=== PATIENT | female | born 1955 | race African-American/Black ===

== ENCOUNTER 2020-04-02 12:25 | Inpatient (IN) ==
[2020-04-02 14:02] LABS: Basophils % 0.2 % (0.0-0.8); Eosinophils # 0.1 10*3/uL (0.0-0.87); Hematocrit 44.8 VOL% (35.7-47.0); Hemoglobin 14.2 GM/DL (12.0-16.0); Immature Granulocytes % 0.5 %; Immature Granulocytes Absolute 0.06 #; Lymphocytes # 1.1 10*3/uL (1.4-4.0); Lymphocytes % 9.1 % (21.3-54.2); Mean Corpuscular HGB Conc 31.7 GM/DL (32-36); Mean Corpuscular Volume 93.3 FL (87-102); Mean Platelet Volume 10.4 FL (9.6-12.0); Monocytes % 7.2 % (1.7-12.7); Platelet Count 310 T/CUMM (130-400); Red Cell Distribution Width 15.9 % (9.3-17.3); White Blood Count 11.5 T/CUMM (4-12)
[2020-04-02 14:14] LABS: Calcium 9.7 MG/DL (8.5-10.1); Osmolality,Calculated 281.5 MOS/KG (273-304)
[2020-04-02] MEDS ORDERED: DEXAMETHASONE 4 MG/1 ML VIAL IM STA (14:47)
[2020-04-02] MEDS ORDERED: methylPREDNISolone ACETATE 40 MG/1 ML VIAL IM STA (14:47)
[2020-04-02 16:02] LABS: Apearance,Urine CLEAR (Clear); Bilirubin,Urine Negative (Negative); Blood, Urine Negative (Negative); Glucose,Urine (UA) Negative (Negative); Ketones,Urine Negative (Negative); Mucus,Urine Occasional /LPF (Occasional); Nitrite,Urine Negative (Negative); Protein,Urine Negative; RBC,Urine 3 /HPF (0-4); Squamous Epithelial Cell,Urine Occasional /HPF (0-10); Urine Color Yellow (Yellow); Urine Specific Gravity 1.013 (1.001-1.035); Urine Urobilinogen < 2.0 EU/DL (0.2-1.0); WBC,Urine 1 /HPF (0-6)
[2020-04-02] MEDS ORDERED: tiZANidine 4 MG TABLET PO PRN (16:56)
[2020-04-02] MEDS: ACETAMINOPHEN 325 MG TABLET PO PRN (17:00)
[2020-04-02] MEDS: SODIUM CHLORIDE 0.9% 1,000 ML IV SCH (17:01)
[2020-04-02] MEDS: INSULIN ASPART PROTAMINE/ASPART 70/30 100 UNIT/ML SUBCUT SCH (17:16)
[2020-04-02] MEDS: rOPINIRole 1 MG TABLET PO SCH (20:43)
[2020-04-02] MEDS: ENOXAPARIN 40 MG/0.4 ML SYRINGE SUBCUT SCH (20:43)
[2020-04-02] MEDS: PREGABALIN 50 MG CAPSULE PO SCH (20:43)
[2020-04-02] MEDS: DOCUSATE SODIUM 100 MG CAPSULE PO SCH (20:44)
[2020-04-03] MEDS: SODIUM CHLORIDE 0.9% 1,000 ML IV SCH ×4 (00:05→16:12)
[2020-04-03] MEDS: ACETAMINOPHEN 325 MG TABLET PO PRN (06:12)
[2020-04-03] MEDS: PREGABALIN 50 MG CAPSULE PO SCH ×2 (08:31→21:55)
[2020-04-03] MEDS: INSULIN ASPART PROTAMINE/ASPART 70/30 100 UNIT/ML SUBCUT SCH ×2 (08:31→16:24)
[2020-04-03] MEDS: metOLazone 2.5 MG TABLET PO SCH (08:32)
[2020-04-03] MEDS: ASPIRIN EC 81 MG TABLET PO SCH (08:32)
[2020-04-03] MEDS: FUROSEMIDE 80 MG TABLET PO SCH (08:32)
[2020-04-03] MEDS: DOCUSATE SODIUM 100 MG CAPSULE PO SCH ×2 (08:32→21:55)
[2020-04-03] MEDS ORDERED: PANTOPRAZOLE 40 MG TABLET PO SCH (09:00)
[2020-04-03] MEDS: DICLOFENAC 1% GEL 100 GM TUBE TOP SCH ×4 (09:52→21:56)
[2020-04-03] MEDS ORDERED: MAGNESIUM SULF RIDER 2 GM in PREMIX 1 EACH IV ONE (15:04)
[2020-04-03] MEDS: ONDANSETRON 4 MG/2 ML VIAL IV PRN (15:22)
[2020-04-03] MEDS: PROMETHAZINE 25 MG/1 ML VIAL IM PRN (18:24)
[2020-04-03] MEDS ORDERED: hydrOXYzine HCL 25 MG/1 ML VIAL IM ONE (21:00)
[2020-04-03] MEDS: PANTOPRAZOLE 40 MG VIAL IV SCH (21:55)
[2020-04-03] MEDS: ENOXAPARIN 40 MG/0.4 ML SYRINGE SUBCUT SCH (21:55)
[2020-04-03] MEDS: rOPINIRole 1 MG TABLET PO SCH (21:55)
[2020-04-04] MEDS: PANTOPRAZOLE 40 MG VIAL IV SCH ×2 (08:57→22:00)
[2020-04-04] MEDS: PREGABALIN 50 MG CAPSULE PO SCH ×2 (08:58→22:01)
[2020-04-04] MEDS: DOCUSATE SODIUM 100 MG CAPSULE PO SCH ×2 (08:58→22:00)
[2020-04-04] MEDS: FUROSEMIDE 80 MG TABLET PO SCH (08:58)
[2020-04-04] MEDS: metOLazone 2.5 MG TABLET PO SCH (08:58)
[2020-04-04] MEDS: ASPIRIN EC 81 MG TABLET PO SCH (08:58)
[2020-04-04] MEDS: DICLOFENAC 1% GEL 100 GM TUBE TOP SCH ×4 (08:58→22:02)
[2020-04-04] MEDS: INSULIN ASPART PROTAMINE/ASPART 70/30 100 UNIT/ML SUBCUT SCH ×2 (09:20→17:20)
[2020-04-04] MEDS: SODIUM CHLORIDE 0.9% 1,000 ML IV SCH ×2 (12:14→12:15)
[2020-04-04] MEDS: ONDANSETRON 4 MG/2 ML VIAL IV PRN (14:49)
[2020-04-04] MEDS: PROMETHAZINE 25 MG/1 ML VIAL IM PRN (16:17)
[2020-04-04] MEDS: ENOXAPARIN 40 MG/0.4 ML SYRINGE SUBCUT SCH (22:00)
[2020-04-04] MEDS: rOPINIRole 1 MG TABLET PO SCH (22:02)
[2020-04-05 05:17] LABS: Basophils % 0.1 % (0.0-0.8); Eosinophils # 0.2 10*3/uL (0.0-0.87); Eosinophils % 1.6 % (0.00-10.9); Hematocrit 42.9 VOL% (35.7-47.0); Hemoglobin 13.8 GM/DL (12.0-16.0); Immature Granulocytes % 0.4 %; Immature Granulocytes Absolute 0.04 #; Lymphocytes # 1.1 10*3/uL (1.4-4.0); Lymphocytes % 10.6 % (21.3-54.2); Mean Corpuscular HGB Conc 32.2 GM/DL (32-36); Mean Corpuscular Volume 92.9 FL (87-102); Mean Platelet Volume 11.1 FL (9.6-12.0); Monocytes % 9.1 % (1.7-12.7); Neutrophils % 78.2 % (38.7-73.9); Platelet Count 277 T/CUMM (130-400); Red Blood Count 4.62 MC/CUMM (3.8-5.5); Red Cell Distribution Width 15.8 % (9.3-17.3); White Blood Count 10.5 T/CUMM (4-12)
[2020-04-05 05:31] LABS: Osmolality,Calculated 271.1 MOS/KG (273-304)
[2020-04-05] MEDS: INSULIN ASPART PROTAMINE/ASPART 70/30 100 UNIT/ML SUBCUT SCH ×2 (09:04→17:10)
[2020-04-05] MEDS: DOCUSATE SODIUM 100 MG CAPSULE PO SCH ×2 (09:05→21:55)
[2020-04-05] MEDS: metOLazone 2.5 MG TABLET PO SCH (09:05)
[2020-04-05] MEDS: PANTOPRAZOLE 40 MG VIAL IV SCH ×2 (09:05→21:55)
[2020-04-05] MEDS: FUROSEMIDE 80 MG TABLET PO SCH (09:05)
[2020-04-05] MEDS: ASPIRIN EC 81 MG TABLET PO SCH (09:05)
[2020-04-05] MEDS: PREGABALIN 50 MG CAPSULE PO SCH ×2 (09:05→21:55)
[2020-04-05] MEDS: SODIUM CHLORIDE 0.9% 1,000 ML IV SCH (09:06)
[2020-04-05] MEDS: DICLOFENAC 1% GEL 100 GM TUBE TOP SCH ×3 (09:06→17:11)
[2020-04-05] MEDS ORDERED: MAGNESIUM SULF RIDER 2 GM in PREMIX 1 EACH IV ONE (09:11)
[2020-04-05] MEDS: ENOXAPARIN 40 MG/0.4 ML SYRINGE SUBCUT SCH (21:55)
[2020-04-05] MEDS: rOPINIRole 1 MG TABLET PO SCH (21:55)
[2020-04-06] MEDS: DICLOFENAC 1% GEL 100 GM TUBE TOP SCH ×5 (00:16→20:22)
[2020-04-06] MEDS: metOLazone 2.5 MG TABLET PO SCH (09:49)
[2020-04-06] MEDS: ASPIRIN EC 81 MG TABLET PO SCH (09:49)
[2020-04-06] MEDS: DOCUSATE SODIUM 100 MG CAPSULE PO SCH ×2 (09:49→20:16)
[2020-04-06] MEDS: INSULIN ASPART PROTAMINE/ASPART 70/30 100 UNIT/ML SUBCUT SCH ×2 (09:49→16:40)
[2020-04-06] MEDS: PREGABALIN 50 MG CAPSULE PO SCH ×2 (09:49→20:16)
[2020-04-06] MEDS: FUROSEMIDE 80 MG TABLET PO SCH (09:49)
[2020-04-06] MEDS: PANTOPRAZOLE 40 MG VIAL IV SCH ×2 (09:50→20:15)
[2020-04-06] MEDS: SODIUM CHLORIDE 0.9% 1,000 ML IV SCH (16:00)
[2020-04-06] MEDS: rOPINIRole 1 MG TABLET PO SCH (20:16)
[2020-04-06] MEDS: APIXABAN 5 MG TABLET PO SCH (20:16)
[2020-04-07] MEDS: metOLazone 2.5 MG TABLET PO SCH (08:29)
[2020-04-07] MEDS: DOCUSATE SODIUM 100 MG CAPSULE PO SCH (08:29)
[2020-04-07] MEDS: APIXABAN 5 MG TABLET PO SCH (08:29)
[2020-04-07] MEDS: ASPIRIN EC 81 MG TABLET PO SCH (08:29)
[2020-04-07] MEDS: PANTOPRAZOLE 40 MG VIAL IV SCH (08:29)
[2020-04-07] MEDS: PREGABALIN 50 MG CAPSULE PO SCH (08:29)
[2020-04-07] MEDS: FUROSEMIDE 80 MG TABLET PO SCH (08:29)
[2020-04-07] MEDS: INSULIN ASPART PROTAMINE/ASPART 70/30 100 UNIT/ML SUBCUT SCH ×2 (08:30→17:53)
[2020-04-07] MEDS: DICLOFENAC 1% GEL 100 GM TUBE TOP SCH ×3 (10:42→17:54)
[2020-04-07] MEDS: SODIUM CHLORIDE 0.9% 1,000 ML IV SCH (13:28)
[2020-04-07 16:46] VITALS: BP 125/64
== END 2020-04-07 19:13 | DRG 125 ==
LOC: EDBD → EDUNIT# → N.ED 12:25 → N.EDINP 15:18 → N.TELEN 16:40
PROVIDERS: ADMIT Family Medicine; ATTEND Family Medicine

== ENCOUNTER 2020-05-26 15:25 | Inpatient (IN) ==
[2020-05-26] MEDS ORDERED: GLUCAGON 1 MG VIAL IM PRN (15:29)
[2020-05-26] MEDS ORDERED: ONDANSETRON 4 MG/2 ML VIAL IV PRN (15:29)
[2020-05-26] MEDS ORDERED: DEXTROSE 50% 25 GM/50 ML VIAL IV PRN (15:29)
[2020-05-26] MEDS ORDERED: ACETAMINOPHEN 325 MG TABLET PO PRN (15:29)
[2020-05-26 17:04] LABS: Basophils % 0.3 % (0.0-0.8); Eosinophils # 0.2 10*3/uL (0.0-0.87); Eosinophils % 1.6 % (0.00-10.9); Hematocrit 44.9 VOL% (35.7-47.0); Hemoglobin 13.8 GM/DL (12.0-16.0); Immature Granulocytes % 1.1 %; Immature Granulocytes Absolute 0.13 #; Lymphocytes # 1.3 10*3/uL (1.4-4.0); Lymphocytes % 10.7 % (21.3-54.2); Mean Corpuscular HGB Conc 30.7 GM/DL (32-36); Mean Corpuscular Volume 92.6 FL (87-102); Mean Platelet Volume 10.4 FL (9.6-12.0); Monocytes % 7.2 % (1.7-12.7); Neutrophils % 79.1 % (38.7-73.9); Platelet Count 329 T/CUMM (130-400); Red Blood Count 4.85 MC/CUMM (3.8-5.5); Red Cell Distribution Width 18.2 % (9.3-17.3)
[2020-05-26] MEDS: INSULIN LISPRO 100 UNIT/ML SUBCUT SCH ×2 (17:19→21:52)
[2020-05-26 17:32] LABS: Albumin 3.8 G/DL (3.4-5.0); Bilirubin,Total 0.4 MG/DL (0.2-1.0); Calcium 10.2 MG/DL (8.5-10.1); Osmolality,Calculated 275.1 MOS/KG (273-304); Total Protein 9.5 G/DL (6.4-8.3)
[2020-05-26] MEDS: SODIUM CHLORIDE 0.45% 1,000 ML IV SCH (18:04)
[2020-05-26 18:14] LABS: Bacteria,Urine Many /HPF (Few); Bilirubin,Urine Negative (Negative); Blood, Urine Negative (Negative); Glucose,Urine (UA) Negative (Negative); Hyaline Casts,Urine 7 /LPF (0-3); Ketones,Urine Negative (Negative); Nitrite,Urine Negative (Negative); Protein,Urine 30 MG/DL; RBC,Urine 4 /HPF (0-4); Squamous Epithelial Cell,Urine Occasional /HPF (0-10); Urine Appearance CLEAR (Clear); Urine Color Yellow (Yellow); Urine Specific Gravity 1.013 (1.001-1.035); Urine Urobilinogen < 2.0 EU/DL (0.2-1.0); WBC,Urine 1 /HPF (0-6)
[2020-05-26] MEDS: LEVOFLOXACIN INJ 500 MG in PREMIX 1 EACH IV SCH (18:18)
[2020-05-26] MEDS ORDERED: VANCOMYCIN INJ 2,500 MG in SODIUM CHLORIDE 0.9% 500 ML IV ONE (20:00)
[2020-05-26] MEDS: DOCUSATE SODIUM 100 MG CAPSULE PO SCH (21:52)
[2020-05-26] MEDS: DABIGATRAN 75 MG CAPSULE PO SCH (21:52)
[2020-05-27] MEDS: DOCUSATE SODIUM 100 MG CAPSULE PO SCH ×2 (09:07→20:37)
[2020-05-27] MEDS: DABIGATRAN 75 MG CAPSULE PO SCH ×2 (09:07→20:37)
[2020-05-27] MEDS: PANTOPRAZOLE 40 MG TABLET PO SCH (09:07)
[2020-05-27] MEDS: INSULIN LISPRO 100 UNIT/ML SUBCUT SCH ×4 (09:08→20:37)
[2020-05-27] MEDS: SODIUM CHLORIDE 0.45% 1,000 ML IV SCH ×2 (10:16→23:40)
[2020-05-27] MEDS: LEVOFLOXACIN INJ 500 MG in PREMIX 1 EACH IV SCH (17:48)
[2020-05-27] MEDS: VANCOMYCIN INJ 2,000 MG in SODIUM CHLORIDE 0.9% 500 ML IV SCH (18:11)
[2020-05-27] MEDS: MENTHOL/ZINC OXIDE OINT 71 GM JAR TOP SCH (20:44)
[2020-05-28] MEDS: INSULIN LISPRO 100 UNIT/ML SUBCUT SCH ×4 (08:27→21:16)
[2020-05-28] MEDS: DABIGATRAN 75 MG CAPSULE PO SCH ×2 (08:30→21:15)
[2020-05-28] MEDS: MENTHOL/ZINC OXIDE OINT 71 GM JAR TOP SCH (08:30)
[2020-05-28] MEDS: PANTOPRAZOLE 40 MG TABLET PO SCH (08:30)
[2020-05-28] MEDS: LEVOFLOXACIN INJ 500 MG in PREMIX 1 EACH IV SCH (08:30)
[2020-05-28] MEDS: DOCUSATE SODIUM 100 MG CAPSULE PO SCH ×2 (08:30→21:16)
[2020-05-28] MEDS: SODIUM CHLORIDE 0.45% 1,000 ML IV SCH (14:40)
[2020-05-28] MEDS: VANCOMYCIN INJ 2,000 MG in SODIUM CHLORIDE 0.9% 500 ML IV SCH (17:26)
[2020-05-29] MEDS: SODIUM CHLORIDE 0.45% 1,000 ML IV SCH (04:55)
[2020-05-29] MEDS: LEVOFLOXACIN INJ 500 MG in PREMIX 1 EACH IV SCH (08:30)
[2020-05-29] MEDS: DABIGATRAN 75 MG CAPSULE PO SCH (08:31)
[2020-05-29] MEDS: MENTHOL/ZINC OXIDE OINT 71 GM JAR TOP SCH (08:31)
[2020-05-29] MEDS: DOCUSATE SODIUM 100 MG CAPSULE PO SCH (08:31)
[2020-05-29] MEDS: PANTOPRAZOLE 40 MG TABLET PO SCH (08:31)
[2020-05-29] MEDS: INSULIN LISPRO 100 UNIT/ML SUBCUT SCH ×2 (09:15→11:15)
[2020-05-29 15:45] VITALS: BP 115/64
== END 2020-05-29 16:01 | disposition home health service (06) | DRG 689 ==
LOC: N.5E → OBSVTOIN 15:47
PROVIDERS: ADMIT Family Medicine; ATTEND Family Medicine

== ENCOUNTER 2020-06-04 19:51 | Inpatient (IN) ==
[2020-06-04 20:46] LABS: Basophils % 0.1 % (0.0-0.8); Hematocrit 42.3 VOL% (35.7-47.0); Immature Granulocytes % 0.6 %; Immature Granulocytes Absolute 0.09 #; Lymphocytes # 0.6 10*3/uL (1.4-4.0); Mean Corpuscular HGB Conc 30.7 GM/DL (32-36); Mean Platelet Volume 10.7 FL (9.6-12.0); Monocytes % 7.6 % (1.7-12.7); Neutrophils % 87.7 % (38.7-73.9); Platelet Count 265 T/CUMM (130-400); White Blood Count 14.1 T/CUMM (4-12)
[2020-06-04 21:02] LABS: ABG Base Excess 13.1 MMOL/L (-2.5-2.5); ABG HCO3 36.7 MMOL/L (20-26); ABG Oxygen Saturation 89.3 % (95-100); ABG PO2 60.7 MM HG (80-95); ABG TCO2 39.7 MMOL/L (23-27); Allen Test Positive
[2020-06-04 21:07] LABS: INR 1.2; PT Patient Result 12.5 SECS (9.8-11.9)
[2020-06-04 21:07] LABS: ABG PCO2 90.4 MM HG (35-48)
[2020-06-04 21:34] LABS: Lymphocytes 4 % (20-55); Platelet Estimate Normal; Segmented Neutrophils 89 % (50-85); Total Cells Counted 100
[2020-06-04 21:40] LABS: Anisocytosis 1+; Hypochromasia Slight; Microcytosis Slight; Polychromasia Few
[2020-06-04 21:55] LABS: Alanine Aminotransferase 14 U/L (13-56); Albumin 3.3 G/DL (3.4-5.0); Alkaline Phosphatase 55 U/L (45-117); Aspartate Amino Transferase 21 U/L (0-37); Bilirubin,Total < 0.39 MG/DL (0.2-1.0); Blood Urea Nitrogen 35 MG/DL (7-18); Calcium 9.4 MG/DL (8.5-10.1); Estimated Glom Filtration Rate 53 ML/MIN; Glucose 71 MG/DL (74-106); Osmolality,Calculated 278.8 MOS/KG (273-304); Total Protein 8.3 G/DL (6.4-8.3)
[2020-06-04] MEDS ORDERED: FUROSEMIDE 40 MG/4 ML VIAL IV STA (21:57)
[2020-06-04 22:08] LABS: Bilirubin,Urine Negative (Negative); Blood, Urine Small mg/dL (Negative); Glucose,Urine (UA) Negative (Negative); Hyaline Casts,Urine 37 /LPF (0-3); Ketones,Urine Negative (Negative); Mucus,Urine Occasional /LPF (Occasional); Nitrite,Urine Negative (Negative); Protein,Urine 30 MG/DL; RBC,Urine 3 /HPF (0-4); Squamous Epithelial Cell,Urine Occasional /HPF (0-10); Urine Appearance CLEAR (Clear); Urine Color Yellow (Yellow); Urine Specific Gravity 1.012 (1.001-1.035); Urine Urobilinogen < 2.0 EU/DL (0.2-1.0)
[2020-06-04] MEDS ORDERED: GLUCAGON 1 MG VIAL IM PRN (23:28)
[2020-06-04] MEDS ORDERED: ACETAMINOPHEN 325 MG TABLET PO PRN (23:28)
[2020-06-04] MEDS ORDERED: ONDANSETRON 4 MG/2 ML VIAL IV PRN (23:28)
[2020-06-04] MEDS ORDERED: DEXTROSE 50% 25 GM/50 ML VIAL IV PRN (23:28)
[2020-06-04] MEDS ORDERED: ALBUTEROL 2.5 MG/3 ML NEB RESP TX PRN (23:28)
[2020-06-04] MEDS ORDERED: DOCUSATE SODIUM 100 MG CAPSULE PO PRN (23:28)
[2020-06-05] MEDS ORDERED: LEVOFLOXACIN INJ 500 MG in PREMIX 1 EACH IV STA (00:30)
[2020-06-05] MEDS ORDERED: tiZANidine 4 MG TABLET PO PRN (02:20)
[2020-06-05] MEDS ORDERED: ALBUTEROL/IPRATROPIUM 3 ML NEB RESP TX PRN (02:23)
[2020-06-05] MEDS ORDERED: ACETYLCYSTEINE 600 MG CAPSULE PO STA (02:26)
[2020-06-05] MEDS ORDERED: LACTATED RINGERS 1,000 ML IV SCH (02:30)
[2020-06-05] MEDS ORDERED: oxyCODONE/ACETAMINOPHEN 5-325 MG TABLET PO PRN (02:48)
[2020-06-05] MEDS ORDERED: METOPROLOL TARTRATE 5 MG/5 ML VIAL IV STA (02:52)
[2020-06-05] MEDS ORDERED: VANCOMYCIN 1,000 MG VIAL ONE ×2 (03:13→03:14)
[2020-06-05] MEDS ORDERED: VANCOMYCIN INJ 3,000 MG in SODIUM CHLORIDE 0.9% 500 ML IV ONE (04:00)
[2020-06-05] MEDS ORDERED: DEXTROSE 50% 25 GM/50 ML SYRINGE IV PRN (04:52)
[2020-06-05 05:04] LABS: Bilirubin,Total 0.5 MG/DL (0.2-1.0); Calcium 9.4 MG/DL (8.5-10.1); Total Protein 7.6 G/DL (6.4-8.3)
[2020-06-05 05:25] LABS: ABG Base Excess 12.2 MMOL/L (-2.5-2.5); ABG PO2 147.2 MM HG (80-95); ABG TCO2 44.4 MMOL/L (23-27)
[2020-06-05 05:26] LABS: ABG Oxygen Saturation 98.7 % (95-100)
[2020-06-05 05:29] LABS: ABG PCO2 79.6 MM HG (35-48)
[2020-06-05 06:09] LABS: Basophils % 0.1 % (0.0-0.8); Eosinophils % 0.1 % (0.00-10.9); Hematocrit 40.4 VOL% (35.7-47.0); Hemoglobin 12.2 GM/DL (12.0-16.0); Immature Granulocytes % 0.3 %; Immature Granulocytes Absolute 0.04 #; Lymphocytes # 0.7 10*3/uL (1.4-4.0); Mean Corpuscular HGB Conc 30.2 GM/DL (32-36); Mean Corpuscular Volume 94.4 FL (87-102); Mean Platelet Volume 10.5 FL (9.6-12.0); Monocytes % 8.6 % (1.7-12.7); Neutrophils % 84.9 % (38.7-73.9); Platelet Count 234 T/CUMM (130-400); Red Blood Count 4.28 MC/CUMM (3.8-5.5); Red Cell Distribution Width 18.2 % (9.3-17.3); White Blood Count 11.7 T/CUMM (4-12)
[2020-06-05] MEDS ORDERED: FUROSEMIDE 40 MG/4 ML VIAL IV SCH (08:00)
[2020-06-05] MEDS: INSULIN LISPRO 100 UNIT/ML SUBCUT SCH ×4 (08:10→20:37)
[2020-06-05] MEDS ORDERED: DIGOXIN 0.5 MG/2 ML AMP IV STA (08:48)
[2020-06-05] MEDS ORDERED: MEGESTROL 40 MG TABLET PO SCH (09:00)
[2020-06-05] MEDS ORDERED: PREGABALIN 50 MG CAPSULE PO SCH (09:00)
[2020-06-05] MEDS ORDERED: metOLazone 2.5 MG TABLET PO SCH (09:00)
[2020-06-05] MEDS ORDERED: INSULIN ASPART PROTAMINE/ASPART 70/30 100 UNIT/ML SUBCUT SCH (09:00)
[2020-06-05] MEDS: AZTREONAM 2,000 MG in SODIUM CHLORIDE 0.9% 100 ML IV SCH ×3 (10:08→20:36)
[2020-06-05] MEDS: ASPIRIN EC 81 MG TABLET PO SCH (10:28)
[2020-06-05] MEDS: ACETYLCYSTEINE 600 MG CAPSULE PO SCH ×2 (10:29→20:40)
[2020-06-05] MEDS: PANTOPRAZOLE 40 MG TABLET PO SCH (10:29)
[2020-06-05] MEDS: DOCUSATE SODIUM 100 MG CAPSULE PO SCH ×2 (10:29→20:19)
[2020-06-05] MEDS: DABIGATRAN 75 MG CAPSULE PO SCH ×2 (10:29→20:22)
[2020-06-05] MEDS: guaiFENesin/DM ER 600-30 MG TABLET PO SCH ×2 (10:29→20:40)
[2020-06-05] MEDS: CHOLECALCIFEROL 1,000 UNIT TABLET PO SCH (10:29)
[2020-06-05] MEDS: METOPROLOL TARTRATE 25 MG TABLET PO SCH ×2 (15:40→20:19)
[2020-06-05] MEDS ORDERED: SODIUM CHLORIDE 0.9% 500 ML IV ONE (16:01)
[2020-06-05 16:21] LABS: ABG Base Excess 19.1 MMOL/L (-2.5-2.5); ABG HCO3 43.3 MMOL/L (20-26); ABG Oxygen Saturation 91.7 % (95-100); ABG PH 7.401 (7.35-7.45); ABG PO2 64.1 MM HG (80-95); ABG TCO2 43.3 MMOL/L (23-27)
[2020-06-05 16:27] LABS: ABG PCO2 78.5 MM HG (35-48)
[2020-06-05] MEDS: SODIUM CHLORIDE 0.9% 1,000 ML IV SCH (17:25)
[2020-06-05] MEDS: MENTHOL/ZINC OXIDE OINT 71 GM JAR TOP SCH (20:19)
[2020-06-05] MEDS ORDERED: VANCOMYCIN INJ 1,500 MG in SODIUM CHLORIDE 0.9% 500 ML IV ONE (22:00)
[2020-06-05] MEDS ORDERED: VANCOMYCIN INJ 2,500 MG in SODIUM CHLORIDE 0.9% 500 ML IV ONE (22:00)
[2020-06-06] MEDS: SODIUM CHLORIDE 0.9% 1,000 ML IV SCH ×4 (01:16→15:40)
[2020-06-06] MEDS: LEVOFLOXACIN INJ 750 MG in PREMIX 1 EACH IV SCH (01:50)
[2020-06-06] MEDS: AZTREONAM 2,000 MG in SODIUM CHLORIDE 0.9% 100 ML IV SCH ×4 (03:54→21:02)
[2020-06-06 05:00] LABS: Basophils % 0.1 % (0.0-0.8); Eosinophils # 0.1 10*3/uL (0.0-0.87); Eosinophils % 0.6 % (0.00-10.9); Hematocrit 37.6 VOL% (35.7-47.0); Hemoglobin 11.6 GM/DL (12.0-16.0); Immature Granulocytes % 0.5 %; Immature Granulocytes Absolute 0.04 #; Lymphocytes # 0.6 10*3/uL (1.4-4.0); Lymphocytes % 7.1 % (21.3-54.2); Mean Corpuscular HGB Conc 30.9 GM/DL (32-36); Mean Corpuscular Volume 91.7 FL (87-102); Mean Platelet Volume 11.3 FL (9.6-12.0); Monocytes % 9.4 % (1.7-12.7); Neutrophils % 82.3 % (38.7-73.9); Platelet Count 267 T/CUMM (130-400); Red Cell Distribution Width 18.5 % (9.3-17.3); White Blood Count 8.4 T/CUMM (4-12)
[2020-06-06] MEDS: VANCOMYCIN INJ 2,500 MG in SODIUM CHLORIDE 0.9% 500 ML IV SCH ×2 (05:03→22:53)
[2020-06-06 05:10] LABS: Albumin 2.5 G/DL (3.4-5.0); Bilirubin,Total 0.6 MG/DL (0.2-1.0); Osmolality,Calculated 281.8 MOS/KG (273-304)
[2020-06-06] MEDS: METOPROLOL TARTRATE 25 MG TABLET PO SCH ×2 (10:42→21:04)
[2020-06-06] MEDS: guaiFENesin/DM ER 600-30 MG TABLET PO SCH ×2 (10:42→21:04)
[2020-06-06] MEDS: ASPIRIN EC 81 MG TABLET PO SCH (10:42)
[2020-06-06] MEDS: DOCUSATE SODIUM 100 MG CAPSULE PO SCH ×2 (10:43→21:04)
[2020-06-06] MEDS: DABIGATRAN 75 MG CAPSULE PO SCH ×2 (10:43→21:03)
[2020-06-06] MEDS: PANTOPRAZOLE 40 MG TABLET PO SCH (10:43)
[2020-06-06] MEDS: CHOLECALCIFEROL 1,000 UNIT TABLET PO SCH (10:43)
[2020-06-06] MEDS: DIGOXIN 0.25 MG TABLET PO SCH (10:43)
[2020-06-06] MEDS: ACETYLCYSTEINE 600 MG CAPSULE PO SCH ×2 (10:43→21:28)
[2020-06-06] MEDS: INSULIN LISPRO 100 UNIT/ML SUBCUT SCH ×4 (10:59→21:28)
[2020-06-06] MEDS: MENTHOL/ZINC OXIDE OINT 71 GM JAR TOP SCH (11:00)
[2020-06-06 11:15] LABS: ABG Base Excess 17.3 MMOL/L (-2.5-2.5); ABG HCO3 41.4 MMOL/L (20-26); ABG Oxygen Saturation 93.4 % (95-100); ABG PCO2 67.7 MM HG (35-48); ABG PH 7.435 (7.35-7.45); ABG PO2 67.2 MM HG (80-95); ABG TCO2 40.5 MMOL/L (23-27); Allen Test Positive
[2020-06-06] MEDS: PREGABALIN 50 MG CAPSULE PO SCH ×2 (16:15→21:03)
[2020-06-06] MEDS ORDERED: POLYETHYLENE GLYCOL POWDER 255 GM BOTTLE PO ONE (21:00)
[2020-06-07] MEDS: LEVOFLOXACIN INJ 750 MG in PREMIX 1 EACH IV SCH (00:50)
[2020-06-07] MEDS: AZTREONAM 2,000 MG in SODIUM CHLORIDE 0.9% 100 ML IV SCH ×4 (03:09→20:57)
[2020-06-07 05:06] LABS: Basophils % 0.2 % (0.0-0.8); Eosinophils # 0.1 10*3/uL (0.0-0.87); Eosinophils % 1.1 % (0.00-10.9); Hematocrit 39.9 VOL% (35.7-47.0); Hemoglobin 12.2 GM/DL (12.0-16.0); Immature Granulocytes % 0.6 %; Immature Granulocytes Absolute 0.05 #; Lymphocytes # 0.8 10*3/uL (1.4-4.0); Mean Corpuscular HGB Conc 30.6 GM/DL (32-36); Mean Corpuscular Volume 91.9 FL (87-102); Mean Platelet Volume 10.9 FL (9.6-12.0); Monocytes % 10.9 % (1.7-12.7); Neutrophils % 77.2 % (38.7-73.9); Platelet Count 237 T/CUMM (130-400); Red Blood Count 4.34 MC/CUMM (3.8-5.5); Red Cell Distribution Width 18.4 % (9.3-17.3); White Blood Count 8.3 T/CUMM (4-12)
[2020-06-07 05:37] LABS: Calcium 8.8 MG/DL (8.5-10.1); Osmolality,Calculated 276.1 MOS/KG (273-304)
[2020-06-07] MEDS: SODIUM CHLORIDE 0.9% 1,000 ML IV SCH ×3 (06:17→18:27)
[2020-06-07] MEDS: INSULIN LISPRO 100 UNIT/ML SUBCUT SCH ×4 (07:55→21:33)
[2020-06-07] MEDS: DABIGATRAN 75 MG CAPSULE PO SCH ×2 (08:55→20:57)
[2020-06-07] MEDS: guaiFENesin/DM ER 600-30 MG TABLET PO SCH ×2 (08:55→20:57)
[2020-06-07] MEDS: ACETYLCYSTEINE 600 MG CAPSULE PO SCH ×2 (08:55→20:58)
[2020-06-07] MEDS: DIGOXIN 0.25 MG TABLET PO SCH (08:55)
[2020-06-07] MEDS: CHOLECALCIFEROL 1,000 UNIT TABLET PO SCH (08:56)
[2020-06-07] MEDS: PREGABALIN 50 MG CAPSULE PO SCH ×2 (08:56→20:57)
[2020-06-07] MEDS: METOPROLOL TARTRATE 25 MG TABLET PO SCH ×2 (09:05→20:58)
[2020-06-07] MEDS: PANTOPRAZOLE 40 MG TABLET PO SCH (09:05)
[2020-06-07] MEDS: MENTHOL/ZINC OXIDE OINT 71 GM JAR TOP SCH (09:06)
[2020-06-07] MEDS: ASPIRIN EC 81 MG TABLET PO SCH (09:06)
[2020-06-07] MEDS: DOCUSATE SODIUM 100 MG CAPSULE PO SCH ×2 (09:07→20:58)
[2020-06-07] MEDS: VANCOMYCIN INJ 2,500 MG in SODIUM CHLORIDE 0.9% 500 ML IV SCH (16:27)
[2020-06-07] MEDS: CALCIUM CARBONATE CHEW 500 MG TABLET PO PRN (22:38)
[2020-06-08] MEDS: SODIUM CHLORIDE 0.9% 1,000 ML IV SCH ×4 (00:56→21:31)
[2020-06-08] MEDS: LEVOFLOXACIN INJ 750 MG in PREMIX 1 EACH IV SCH (00:56)
[2020-06-08] MEDS: AZTREONAM 2,000 MG in SODIUM CHLORIDE 0.9% 100 ML IV SCH ×4 (02:48→21:28)
[2020-06-08 05:53] LABS: Basophils % 0.1 % (0.0-0.8); Eosinophils # 0.2 10*3/uL (0.0-0.87); Eosinophils % 2.1 % (0.00-10.9); Hematocrit 36.6 VOL% (35.7-47.0); Hemoglobin 11.3 GM/DL (12.0-16.0); Immature Granulocytes % 0.5 %; Immature Granulocytes Absolute 0.04 #; Lymphocytes # 0.9 10*3/uL (1.4-4.0); Lymphocytes % 10.3 % (21.3-54.2); Mean Corpuscular HGB Conc 30.9 GM/DL (32-36); Mean Corpuscular Volume 92.9 FL (87-102); Mean Platelet Volume 11.2 FL (9.6-12.0); Monocytes % 10.3 % (1.7-12.7); Neutrophils % 76.7 % (38.7-73.9); Platelet Count 248 T/CUMM (130-400); Red Blood Count 3.94 MC/CUMM (3.8-5.5); Red Cell Distribution Width 18.3 % (9.3-17.3); White Blood Count 8.5 T/CUMM (4-12)
[2020-06-08 06:25] LABS: Calcium 8.7 MG/DL (8.5-10.1)
[2020-06-08] MEDS: CHOLECALCIFEROL 1,000 UNIT TABLET PO SCH (08:42)
[2020-06-08] MEDS: ASPIRIN EC 81 MG TABLET PO SCH (08:42)
[2020-06-08] MEDS: DIGOXIN 0.25 MG TABLET PO SCH (08:42)
[2020-06-08] MEDS: METOPROLOL TARTRATE 25 MG TABLET PO SCH ×2 (08:43→21:29)
[2020-06-08] MEDS: INSULIN LISPRO 100 UNIT/ML SUBCUT SCH ×4 (08:43→21:30)
[2020-06-08] MEDS: PREGABALIN 50 MG CAPSULE PO SCH ×2 (08:43→21:29)
[2020-06-08] MEDS: PANTOPRAZOLE 40 MG TABLET PO SCH (08:43)
[2020-06-08] MEDS: DABIGATRAN 75 MG CAPSULE PO SCH ×2 (08:43→21:29)
[2020-06-08] MEDS: DOCUSATE SODIUM 100 MG CAPSULE PO SCH ×2 (08:43→21:29)
[2020-06-08] MEDS: guaiFENesin/DM ER 600-30 MG TABLET PO SCH ×2 (09:53→21:29)
[2020-06-08] MEDS: MENTHOL/ZINC OXIDE OINT 71 GM JAR TOP SCH (09:53)
[2020-06-08] MEDS: NYSTATIN POWDER 15 GM BOTTLE TOP SCH (21:32)
[2020-06-09] MEDS: LEVOFLOXACIN INJ 750 MG in PREMIX 1 EACH IV SCH (01:29)
[2020-06-09] MEDS: AZTREONAM 2,000 MG in SODIUM CHLORIDE 0.9% 100 ML IV SCH ×4 (03:24→20:44)
[2020-06-09 08:31] LABS: Uric Acid 8.4 MG/DL (2.6-6.0)
[2020-06-09] MEDS: INSULIN LISPRO 100 UNIT/ML SUBCUT SCH ×4 (09:29→20:56)
[2020-06-09] MEDS: METOPROLOL TARTRATE 25 MG TABLET PO SCH ×2 (09:42→20:47)
[2020-06-09] MEDS: guaiFENesin/DM ER 600-30 MG TABLET PO SCH ×2 (09:42→20:47)
[2020-06-09] MEDS: DIGOXIN 0.25 MG TABLET PO SCH (09:42)
[2020-06-09] MEDS: PREGABALIN 75 MG CAPSULE PO SCH ×3 (09:42→20:47)
[2020-06-09] MEDS: ASPIRIN EC 81 MG TABLET PO SCH (09:42)
[2020-06-09] MEDS: CHOLECALCIFEROL 1,000 UNIT TABLET PO SCH (09:42)
[2020-06-09] MEDS: DABIGATRAN 75 MG CAPSULE PO SCH ×2 (09:42→20:47)
[2020-06-09] MEDS: DOCUSATE SODIUM 100 MG CAPSULE PO SCH ×2 (09:42→20:47)
[2020-06-09] MEDS: PANTOPRAZOLE 40 MG TABLET PO SCH (09:43)
[2020-06-09] MEDS: NYSTATIN POWDER 15 GM BOTTLE TOP SCH ×2 (09:45→20:52)
[2020-06-09] MEDS: MENTHOL/ZINC OXIDE OINT 71 GM JAR TOP SCH (09:50)
[2020-06-09] MEDS: SODIUM CHLORIDE 0.9% 1,000 ML IV SCH ×3 (11:18→20:44)
[2020-06-10] MEDS: LEVOFLOXACIN INJ 750 MG in PREMIX 1 EACH IV SCH (01:18)
[2020-06-10] MEDS: AZTREONAM 2,000 MG in SODIUM CHLORIDE 0.9% 100 ML IV SCH ×4 (02:58→21:04)
[2020-06-10] MEDS ORDERED: CHOLECALCIFEROL PO SCH (09:00)
[2020-06-10] MEDS: INSULIN LISPRO 100 UNIT/ML SUBCUT SCH ×4 (09:15→21:05)
[2020-06-10] MEDS: SODIUM CHLORIDE 0.9% 1,000 ML IV SCH ×4 (09:18→19:29)
[2020-06-10] MEDS: DIGOXIN 0.25 MG TABLET PO SCH (09:20)
[2020-06-10] MEDS: DILTIAZEM CD 180 MG CAPSULE PO SCH (09:20)
[2020-06-10] MEDS: guaiFENesin/DM ER 600-30 MG TABLET PO SCH ×2 (09:20→21:06)
[2020-06-10] MEDS: DOCUSATE SODIUM 100 MG CAPSULE PO SCH ×2 (09:20→21:06)
[2020-06-10] MEDS: METOPROLOL TARTRATE 25 MG TABLET PO SCH ×2 (09:21→21:06)
[2020-06-10] MEDS: PANTOPRAZOLE 40 MG TABLET PO SCH (09:21)
[2020-06-10] MEDS: PREGABALIN 75 MG CAPSULE PO SCH ×3 (09:21→21:05)
[2020-06-10] MEDS: ASPIRIN EC 81 MG TABLET PO SCH (09:21)
[2020-06-10] MEDS: CHOLECALCIFEROL 1,000 UNIT TABLET PO SCH (09:21)
[2020-06-10] MEDS: DABIGATRAN 150 MG CAPSULE PO SCH ×2 (09:27→21:04)
[2020-06-10] MEDS: MENTHOL/ZINC OXIDE OINT 71 GM JAR TOP SCH (09:34)
[2020-06-10] MEDS: NYSTATIN POWDER 15 GM BOTTLE TOP SCH ×2 (09:34→21:06)
[2020-06-11] MEDS: LEVOFLOXACIN INJ 750 MG in PREMIX 1 EACH IV SCH (00:30)
[2020-06-11] MEDS: SODIUM CHLORIDE 0.9% 1,000 ML IV SCH ×2 (01:47→07:10)
[2020-06-11] MEDS: AZTREONAM 2,000 MG in SODIUM CHLORIDE 0.9% 100 ML IV SCH (03:42)
[2020-06-11] MEDS: INSULIN LISPRO 100 UNIT/ML SUBCUT SCH ×4 (07:52→20:43)
[2020-06-11] MEDS: PREGABALIN 75 MG CAPSULE PO SCH ×3 (08:42→20:41)
[2020-06-11] MEDS: guaiFENesin/DM ER 600-30 MG TABLET PO SCH ×2 (08:42→20:41)
[2020-06-11] MEDS: DILTIAZEM CD 180 MG CAPSULE PO SCH (08:42)
[2020-06-11] MEDS: CHOLECALCIFEROL 1,000 UNIT TABLET PO SCH (08:42)
[2020-06-11] MEDS: ASPIRIN EC 81 MG TABLET PO SCH (08:42)
[2020-06-11] MEDS: DABIGATRAN 150 MG CAPSULE PO SCH ×2 (08:42→20:44)
[2020-06-11] MEDS: DIGOXIN 0.25 MG TABLET PO SCH (08:42)
[2020-06-11] MEDS: DOCUSATE SODIUM 100 MG CAPSULE PO SCH ×2 (08:42→20:41)
[2020-06-11] MEDS: METOPROLOL TARTRATE 25 MG TABLET PO SCH ×2 (08:42→20:41)
[2020-06-11] MEDS: PANTOPRAZOLE 40 MG TABLET PO SCH (08:42)
[2020-06-11] MEDS: NYSTATIN POWDER 15 GM BOTTLE TOP SCH ×2 (08:43→20:44)
[2020-06-11] MEDS: MENTHOL/ZINC OXIDE OINT 71 GM JAR TOP SCH (08:43)
[2020-06-11] MEDS: CALCIUM CARBONATE CHEW 500 MG TABLET PO PRN (09:34)
[2020-06-12] MEDS: LEVOFLOXACIN INJ 750 MG in PREMIX 1 EACH IV SCH (00:37)
[2020-06-12] MEDS: DOCUSATE SODIUM 100 MG CAPSULE PO SCH (09:29)
[2020-06-12] MEDS: INSULIN LISPRO 100 UNIT/ML SUBCUT SCH ×3 (09:29→16:47)
[2020-06-12] MEDS: guaiFENesin/DM ER 600-30 MG TABLET PO SCH (09:30)
[2020-06-12] MEDS: DILTIAZEM CD 180 MG CAPSULE PO SCH (09:30)
[2020-06-12] MEDS: PREGABALIN 75 MG CAPSULE PO SCH ×2 (09:30→15:35)
[2020-06-12] MEDS: METOPROLOL TARTRATE 25 MG TABLET PO SCH (09:30)
[2020-06-12] MEDS: DIGOXIN 0.25 MG TABLET PO SCH (09:30)
[2020-06-12] MEDS: CHOLECALCIFEROL 1,000 UNIT TABLET PO SCH (09:30)
[2020-06-12] MEDS: ASPIRIN EC 81 MG TABLET PO SCH (09:30)
[2020-06-12] MEDS: PANTOPRAZOLE 40 MG TABLET PO SCH (09:31)
[2020-06-12] MEDS: DABIGATRAN 150 MG CAPSULE PO SCH (09:31)
[2020-06-12 12:15] VITALS: BP 124/69
[2020-06-12] MEDS: NYSTATIN POWDER 15 GM BOTTLE TOP SCH (12:46)
[2020-06-12] MEDS: MENTHOL/ZINC OXIDE OINT 71 GM JAR TOP SCH (12:46)
== END 2020-06-12 16:51 | DRG 189 ==
LOC: EDBD → EDUNIT# → N.ED 19:51 → SUATTDRO 23:18 → N.EDINP 23:18 → N.CC 06-05 19:45 → N.5E 06-06 14:16
PROVIDERS: ADMIT Internal Medicine; ATTEND Family Medicine

== ENCOUNTER 2020-08-12 13:32 | Inpatient (IN) ==
[2020-08-12 14:11] LABS: Basophils % 0.2 % (0.0-0.8); Eosinophils # 2.5 10*3/uL (0.0-0.87); Eosinophils % 19.3 % (0.00-10.9); Hematocrit 41.2 VOL% (35.7-47.0); Hemoglobin 12.1 GM/DL (12.0-16.0); Immature Granulocytes % 0.5 %; Immature Granulocytes Absolute 0.07 #; Lymphocytes # 1.2 10*3/uL (1.4-4.0); Lymphocytes % 9.7 % (21.3-54.2); Mean Corpuscular HGB Conc 29.4 GM/DL (32-36); Mean Corpuscular Volume 94.7 FL (87-102); Mean Platelet Volume 10.4 FL (9.6-12.0); Monocytes % 6.2 % (1.7-12.7); Neutrophils % 64.1 % (38.7-73.9); Platelet Count 355 T/CUMM (130-400); Red Blood Count 4.35 MC/CUMM (3.8-5.5); White Blood Count 12.7 T/CUMM (4-12)
[2020-08-12] MEDS ORDERED: FUROSEMIDE 100 MG/10 ML VIAL IV STA (14:17)
[2020-08-12 14:28] LABS: Albumin 2.9 G/DL (3.4-5.0); Bilirubin,Total 0.4 MG/DL (0.2-1.0); Calcium 9.2 MG/DL (8.5-10.1); Osmolality,Calculated 281.2 MOS/KG (273-304); Potassium 5.4 MMOL/L (3.5-5.1); Total Protein 7.8 G/DL (6.4-8.3)
[2020-08-12 14:30] LABS: Eosinophils 19 % (0-10); Lymphocytes 10 % (20-55); Segmented Neutrophils 62 % (50-85); Total Cells Counted 100
[2020-08-12 14:31] LABS: Anisocytosis 1+; Elliptocytes Few; Hypochromasia 1+; Platelet Estimate Adequate; Polychromasia 1+
[2020-08-12 15:05] LABS: Bacteria,Urine Occasional /HPF (Few); Bilirubin,Urine Negative (Negative); Blood, Urine Negative (Negative); Glucose,Urine (UA) Negative (Negative); Hyaline Casts,Urine 31 /LPF (0-3); Ketones,Urine Negative (Negative); Mucus,Urine Occasional /LPF (Occasional); Nitrite,Urine Negative (Negative); Protein,Urine 30 MG/DL; RBC,Urine 2 /HPF (0-4); Squamous Epithelial Cell,Urine Occasional /HPF (0-10); Urine Appearance Slightly Hazy (Clear); Urine Color Yellow (Yellow); Urine Specific Gravity 1.014 (1.001-1.035); Urine Urobilinogen < 2.0 EU/DL (0.2-1.0); WBC,Urine <1 /HPF (0-6)
[2020-08-12] MEDS ORDERED: DEXTROSE 50% 25 GM/50 ML VIAL IV PRN (15:30)
[2020-08-12] MEDS ORDERED: GLUCAGON 1 MG VIAL IM PRN (15:30)
[2020-08-12] MEDS ORDERED: CALCIUM CARBONATE CHEW 500 MG TABLET PO PRN (16:54)
[2020-08-12] MEDS: methylPREDNISolone SOD SUC 40 MG/1 ML VIAL IV SCH (18:00)
[2020-08-12] MEDS: cefTRIAXone 1,000 MG in SYRINGE 1 EACH IV SCH (18:00)
[2020-08-12] MEDS: ALBUTEROL/IPRATROPIUM 3 ML NEB RESP TX SCH ×2 (20:17→23:30)
[2020-08-12] MEDS: APIXABAN 5 MG TABLET PO SCH (21:42)
[2020-08-12] MEDS: DOCUSATE SODIUM 100 MG CAPSULE PO SCH (21:42)
[2020-08-12] MEDS: METOPROLOL TARTRATE 25 MG TABLET PO SCH (21:42)
[2020-08-12] MEDS: FUROSEMIDE 40 MG/4 ML VIAL IV SCH (21:47)
[2020-08-12] MEDS: ACETAMINOPHEN 325 MG TABLET PO PRN (21:58)
[2020-08-12] MEDS: INSULIN REGULAR 100 UNIT/ML SUBCUT SCH (21:58)
[2020-08-13] MEDS: DOCUSATE SODIUM 100 MG CAPSULE PO SCH ×5 (00:17→21:43)
[2020-08-13] MEDS: ALBUTEROL/IPRATROPIUM 3 ML NEB RESP TX SCH ×5 (02:01→19:09)
[2020-08-13 06:02] LABS: Calcium 9.5 MG/DL (8.5-10.1); Osmolality,Calculated 277.5 MOS/KG (273-304); Potassium 5.5 MMOL/L (3.5-5.1)
[2020-08-13] MEDS: methylPREDNISolone SOD SUC 40 MG/1 ML VIAL IV SCH ×2 (06:16→17:59)
[2020-08-13 06:24] LABS: Basophils % 0.1 % (0.0-0.8); Eosinophils # 0.1 10*3/uL (0.0-0.87); Eosinophils % 0.5 % (0.00-10.9); Hematocrit 44.2 VOL% (35.7-47.0); Immature Granulocytes % 1.1 %; Lymphocytes # 0.8 10*3/uL (1.4-4.0); Lymphocytes % 8.9 % (21.3-54.2); Mean Corpuscular HGB Conc 29.4 GM/DL (32-36); Mean Corpuscular Volume 95.5 FL (87-102); Mean Platelet Volume 10.8 FL (9.6-12.0); Monocytes % 4.9 % (1.7-12.7); Neutrophils % 84.5 % (38.7-73.9); Platelet Count 299 T/CUMM (130-400); Red Blood Count 4.63 MC/CUMM (3.8-5.5); Red Cell Distribution Width 16.8 % (9.3-17.3); White Blood Count 9.3 T/CUMM (4-12)
[2020-08-13 08:39] LABS: ABG Base Excess 11.1 MMOL/L (-2.5-2.5); ABG HCO3 34.8 MMOL/L (20-26); ABG Oxygen Saturation 94.4 % (95-100); ABG PH 7.288 (7.35-7.45); ABG PO2 78.6 MM HG (80-95); ABG TCO2 37.8 MMOL/L (23-27)
[2020-08-13 08:54] LABS: ABG PCO2 88.4 MM HG (35-48)
[2020-08-13] MEDS ORDERED: PANTOPRAZOLE 40 MG TABLET PO SCH (09:00)
[2020-08-13] MEDS: INSULIN REGULAR 100 UNIT/ML SUBCUT SCH ×4 (10:21→21:43)
[2020-08-13] MEDS: METOPROLOL TARTRATE 25 MG TABLET PO SCH ×2 (10:21→21:43)
[2020-08-13] MEDS: DILTIAZEM CD 180 MG CAPSULE PO SCH (10:21)
[2020-08-13] MEDS: PANTOPRAZOLE 40 MG TABLET PO SCH (10:21)
[2020-08-13] MEDS: THEOPHYLLINE ER (24 HR) 200 MG CAPSULE PO SCH (10:22)
[2020-08-13] MEDS: ASPIRIN EC 81 MG TABLET PO SCH (10:22)
[2020-08-13] MEDS: APIXABAN 5 MG TABLET PO SCH ×2 (10:22→21:43)
[2020-08-13] MEDS: FUROSEMIDE 40 MG/4 ML VIAL IV SCH ×2 (10:22→21:44)
[2020-08-13] MEDS: ACETAMINOPHEN 325 MG TABLET PO PRN (14:55)
[2020-08-13] MEDS: cefTRIAXone 1,000 MG in SYRINGE 1 EACH IV SCH (17:56)
[2020-08-14] MEDS: ALBUTEROL/IPRATROPIUM 3 ML NEB RESP TX SCH ×7 (00:03→23:23)
[2020-08-14] MEDS ORDERED: methylPREDNISolone SOD SUC 40 MG/1 ML VIAL ONE (07:27)
[2020-08-14] MEDS: methylPREDNISolone SOD SUC 40 MG/1 ML VIAL IV SCH ×2 (07:31→17:17)
[2020-08-14] MEDS: ASPIRIN EC 81 MG TABLET PO SCH (08:43)
[2020-08-14] MEDS: PANTOPRAZOLE 40 MG TABLET PO SCH (08:43)
[2020-08-14] MEDS: THEOPHYLLINE ER (24 HR) 200 MG CAPSULE PO SCH (08:43)
[2020-08-14] MEDS: FUROSEMIDE 40 MG/4 ML VIAL IV SCH ×2 (08:43→21:20)
[2020-08-14] MEDS: traMADol 50 MG TABLET PO PRN ×3 (08:44→21:28)
[2020-08-14] MEDS: DOCUSATE SODIUM 100 MG CAPSULE PO SCH ×4 (08:44→21:36)
[2020-08-14] MEDS: APIXABAN 5 MG TABLET PO SCH ×2 (08:45→21:20)
[2020-08-14] MEDS: DILTIAZEM CD 180 MG CAPSULE PO SCH (08:45)
[2020-08-14] MEDS: METOPROLOL TARTRATE 25 MG TABLET PO SCH ×2 (08:45→21:20)
[2020-08-14] MEDS: INSULIN REGULAR 100 UNIT/ML SUBCUT SCH ×4 (13:39→21:21)
[2020-08-14] MEDS ORDERED: SKIN HEALING OINT (AQUAPHOR) 50 GM TUBE TOP PRN (14:42)
[2020-08-14] MEDS: cefTRIAXone 1,000 MG in SYRINGE 1 EACH IV SCH (17:17)
[2020-08-15] MEDS: ALBUTEROL/IPRATROPIUM 3 ML NEB RESP TX SCH ×5 (03:48→20:04)
[2020-08-15] MEDS: methylPREDNISolone SOD SUC 40 MG/1 ML VIAL IV SCH ×2 (06:20→17:29)
[2020-08-15 07:17] LABS: Eosinophils % 0.2 % (0.00-10.9); Hematocrit 41.2 VOL% (35.7-47.0); Hemoglobin 12.5 GM/DL (12.0-16.0); Immature Granulocytes Absolute 0.06 #; Lymphocytes # 0.6 10*3/uL (1.4-4.0); Lymphocytes % 9.2 % (21.3-54.2); Mean Corpuscular HGB Conc 30.3 GM/DL (32-36); Mean Corpuscular Volume 91.2 FL (87-102); Mean Platelet Volume 10.8 FL (9.6-12.0); Monocytes % 8.1 % (1.7-12.7); Neutrophils % 81.5 % (38.7-73.9); Platelet Count 327 T/CUMM (130-400); Red Blood Count 4.52 MC/CUMM (3.8-5.5); Red Cell Distribution Width 16.9 % (9.3-17.3); White Blood Count 6.2 T/CUMM (4-12)
[2020-08-15 07:39] LABS: Alanine Aminotransferase 11 U/L (13-56); Albumin 2.8 G/DL (3.4-5.0); Alkaline Phosphatase 62 U/L (45-117); Aspartate Amino Transferase 3 U/L (0-37); Bilirubin,Total < 0.39 MG/DL (0.2-1.0); Blood Urea Nitrogen 46 MG/DL (7-18); Calcium 9.3 MG/DL (8.5-10.1); Carbon Dioxide 39 MMOL/L (21-32); Estimated Glom Filtration Rate 98 ML/MIN; Glucose 279 MG/DL (74-106); Osmolality,Calculated 283.7 MOS/KG (273-304); Potassium 5.1 MMOL/L (3.5-5.1); Sodium 131 MMOL/L (136-145)
[2020-08-15] MEDS: INSULIN REGULAR 100 UNIT/ML SUBCUT SCH ×4 (09:20→21:34)
[2020-08-15] MEDS: DILTIAZEM CD 180 MG CAPSULE PO SCH (09:25)
[2020-08-15] MEDS: traMADol 50 MG TABLET PO PRN ×2 (09:25→21:38)
[2020-08-15] MEDS: THEOPHYLLINE ER (24 HR) 200 MG CAPSULE PO SCH (09:25)
[2020-08-15] MEDS: ASPIRIN EC 81 MG TABLET PO SCH (09:25)
[2020-08-15] MEDS: APIXABAN 5 MG TABLET PO SCH ×2 (09:26→21:35)
[2020-08-15] MEDS: DOCUSATE SODIUM 100 MG CAPSULE PO SCH ×4 (09:27→21:49)
[2020-08-15] MEDS: PANTOPRAZOLE 40 MG TABLET PO SCH (09:27)
[2020-08-15] MEDS: FUROSEMIDE 40 MG/4 ML VIAL IV SCH ×2 (09:27→21:35)
[2020-08-15] MEDS: METOPROLOL TARTRATE 25 MG TABLET PO SCH ×2 (09:27→21:35)
[2020-08-15] MEDS: cefTRIAXone 1,000 MG in SYRINGE 1 EACH IV SCH (17:29)
[2020-08-15] MEDS: VANCOMYCIN INJ 2,000 MG in SODIUM CHLORIDE 0.9% 500 ML IV SCH (17:56)
[2020-08-15] MEDS: SODIUM CHLORIDE 0.9% 1,000 ML IV SCH (23:00)
[2020-08-16] MEDS: BUDESONIDE 0.25 MG/2 ML NEB RESP TX SCH ×3 (00:54→19:48)
[2020-08-16] MEDS: ALBUTEROL/IPRATROPIUM 3 ML NEB RESP TX SCH ×7 (00:54→23:48)
[2020-08-16] MEDS: VANCOMYCIN INJ 2,000 MG in SODIUM CHLORIDE 0.9% 500 ML IV SCH ×2 (05:20→17:49)
[2020-08-16] MEDS: traMADol 50 MG TABLET PO PRN ×3 (05:27→21:06)
[2020-08-16] MEDS: methylPREDNISolone SOD SUC 40 MG/1 ML VIAL IV SCH ×2 (06:19→18:22)
[2020-08-16 06:56] LABS: Alanine Aminotransferase 13 U/L (13-56); Albumin 2.9 G/DL (3.4-5.0); Alkaline Phosphatase 62 U/L (45-117); Aspartate Amino Transferase < 3 U/L (0-37); Blood Urea Nitrogen 49 MG/DL (7-18); Calcium 9.1 MG/DL (8.5-10.1); Carbon Dioxide 37 MMOL/L (21-32); Estimated Glom Filtration Rate 94 ML/MIN; Glucose 277 MG/DL (74-106); Osmolality,Calculated 282.8 MOS/KG (273-304); Potassium 4.8 MMOL/L (3.5-5.1); Sodium 130 MMOL/L (136-145); Total Protein 7.8 G/DL (6.4-8.3)
[2020-08-16 07:04] LABS: Eosinophils % 0.2 % (0.00-10.9); Hematocrit 41.2 VOL% (35.7-47.0); Hemoglobin 12.1 GM/DL (12.0-16.0); Immature Granulocytes % 0.7 %; Immature Granulocytes Absolute 0.04 #; Lymphocytes # 0.4 10*3/uL (1.4-4.0); Lymphocytes % 7.5 % (21.3-54.2); Mean Corpuscular HGB Conc 29.4 GM/DL (32-36); Mean Corpuscular Volume 94.3 FL (87-102); Mean Platelet Volume 11.1 FL (9.6-12.0); Monocytes % 9.8 % (1.7-12.7); Neutrophils % 81.8 % (38.7-73.9); Platelet Count 317 T/CUMM (130-400); Red Blood Count 4.37 MC/CUMM (3.8-5.5); Red Cell Distribution Width 16.4 % (9.3-17.3); White Blood Count 5.5 T/CUMM (4-12)
[2020-08-16] MEDS: ASPIRIN EC 81 MG TABLET PO SCH (10:20)
[2020-08-16] MEDS: INSULIN REGULAR 100 UNIT/ML SUBCUT SCH ×4 (10:20→21:07)
[2020-08-16] MEDS: DOCUSATE SODIUM 100 MG CAPSULE PO SCH ×4 (10:20→21:14)
[2020-08-16] MEDS: THEOPHYLLINE ER (24 HR) 200 MG CAPSULE PO SCH (10:21)
[2020-08-16] MEDS: DILTIAZEM CD 180 MG CAPSULE PO SCH (10:21)
[2020-08-16] MEDS: PANTOPRAZOLE 40 MG TABLET PO SCH (10:21)
[2020-08-16] MEDS: METOPROLOL TARTRATE 25 MG TABLET PO SCH ×2 (10:21→21:06)
[2020-08-16] MEDS: APIXABAN 5 MG TABLET PO SCH ×2 (10:21→21:06)
[2020-08-16] MEDS: FUROSEMIDE 40 MG/4 ML VIAL IV SCH ×2 (12:05→16:45)
[2020-08-16] MEDS: SODIUM CHLORIDE 0.9% 1,000 ML IV SCH (12:45)
[2020-08-16] MEDS: GABAPENTIN 300 MG CAPSULE PO SCH ×2 (15:01→21:06)
[2020-08-16] MEDS: BISACODYL 5 MG TABLET PO SCH ×2 (15:01→21:07)
[2020-08-16] MEDS: cefTRIAXone 1,000 MG in SYRINGE 1 EACH IV SCH (17:48)
[2020-08-16] MEDS: MAGNESIUM CITRATE 300 ML BOTTLE PO PRN (21:06)
[2020-08-16] MEDS: INSULIN GLARGINE 100 UNIT/ML SUBCUT SCH (21:08)
[2020-08-17] MEDS: SODIUM CHLORIDE 0.9% 1,000 ML IV SCH ×2 (02:14→22:11)
[2020-08-17] MEDS: ALBUTEROL/IPRATROPIUM 3 ML NEB RESP TX SCH ×6 (03:07→23:07)
[2020-08-17] MEDS: methylPREDNISolone SOD SUC 40 MG/1 ML VIAL IV SCH ×2 (06:27→17:40)
[2020-08-17] MEDS: VANCOMYCIN INJ 2,000 MG in SODIUM CHLORIDE 0.9% 500 ML IV SCH (06:32)
[2020-08-17] MEDS: BUDESONIDE 0.25 MG/2 ML NEB RESP TX SCH ×2 (07:06→19:21)
[2020-08-17] MEDS: INSULIN REGULAR 100 UNIT/ML SUBCUT SCH ×4 (08:32→22:11)
[2020-08-17] MEDS: FUROSEMIDE 40 MG/4 ML VIAL IV SCH ×2 (09:22→17:37)
[2020-08-17] MEDS ORDERED: GLUCAGON 1 MG VIAL IM PRN (12:18)
[2020-08-17] MEDS ORDERED: DEXTROSE 50% 25 GM/50 ML VIAL IV PRN (12:18)
[2020-08-17] MEDS: ASPIRIN EC 81 MG TABLET PO SCH (13:50)
[2020-08-17] MEDS: DILTIAZEM CD 180 MG CAPSULE PO SCH (13:50)
[2020-08-17] MEDS: APIXABAN 5 MG TABLET PO SCH (13:51)
[2020-08-17] MEDS: DOCUSATE SODIUM 100 MG CAPSULE PO SCH ×2 (13:51)
[2020-08-17] MEDS: BISACODYL 5 MG TABLET PO SCH (13:51)
[2020-08-17] MEDS: GABAPENTIN 300 MG CAPSULE PO SCH (13:52)
[2020-08-17] MEDS: PANTOPRAZOLE 40 MG TABLET PO SCH (13:52)
[2020-08-17] MEDS: METOPROLOL TARTRATE 25 MG TABLET PO SCH (13:52)
[2020-08-17] MEDS: THEOPHYLLINE ER (24 HR) 200 MG CAPSULE PO SCH (13:52)
[2020-08-17] MEDS: MAGNESIUM CITRATE 300 ML BOTTLE PO PRN (17:38)
[2020-08-17] MEDS: cefTRIAXone 1,000 MG in SYRINGE 1 EACH IV SCH (17:58)
[2020-08-17] MEDS: INSULIN GLARGINE 100 UNIT/ML SUBCUT SCH (22:12)
[2020-08-18] MEDS: DOCUSATE SODIUM 100 MG CAPSULE PO SCH ×6 (00:53→21:36)
[2020-08-18] MEDS: traMADol 50 MG TABLET PO PRN (00:53)
[2020-08-18] MEDS: METOPROLOL TARTRATE 25 MG TABLET PO SCH ×3 (00:54→21:35)
[2020-08-18] MEDS: APIXABAN 5 MG TABLET PO SCH ×3 (00:54→21:35)
[2020-08-18] MEDS: GABAPENTIN 300 MG CAPSULE PO SCH ×3 (00:54→21:34)
[2020-08-18] MEDS: BISACODYL 5 MG TABLET PO SCH ×3 (00:54→21:35)
[2020-08-18] MEDS: ALBUTEROL/IPRATROPIUM 3 ML NEB RESP TX SCH ×6 (02:28→22:14)
[2020-08-18] MEDS: methylPREDNISolone SOD SUC 40 MG/1 ML VIAL IV SCH ×2 (06:02→18:48)
[2020-08-18] MEDS: BUDESONIDE 0.25 MG/2 ML NEB RESP TX SCH ×2 (07:34→19:06)
[2020-08-18] MEDS: INSULIN REGULAR 100 UNIT/ML SUBCUT SCH ×4 (10:30→21:35)
[2020-08-18] MEDS: ASPIRIN EC 81 MG TABLET PO SCH (10:31)
[2020-08-18] MEDS: THEOPHYLLINE ER (24 HR) 200 MG CAPSULE PO SCH (10:32)
[2020-08-18] MEDS: PANTOPRAZOLE 40 MG TABLET PO SCH (10:32)
[2020-08-18] MEDS: LACTULOSE 20 GM/30 ML UDCUP PO PRN (10:39)
[2020-08-18] MEDS: FUROSEMIDE 40 MG/4 ML VIAL IV SCH ×2 (10:40→16:46)
[2020-08-18] MEDS: DILTIAZEM CD 180 MG CAPSULE PO SCH (11:54)
[2020-08-18] MEDS: SODIUM CHLORIDE 0.9% 1,000 ML IV SCH ×2 (13:03→17:10)
[2020-08-18] MEDS: cefTRIAXone 1,000 MG in SYRINGE 1 EACH IV SCH (18:44)
[2020-08-18] MEDS: INSULIN GLARGINE 100 UNIT/ML SUBCUT SCH (21:35)
[2020-08-19] MEDS: ALBUTEROL/IPRATROPIUM 3 ML NEB RESP TX SCH ×6 (02:15→23:36)
[2020-08-19] MEDS: SODIUM CHLORIDE 0.9% 1,000 ML IV SCH ×2 (02:30→21:57)
[2020-08-19] MEDS: methylPREDNISolone SOD SUC 40 MG/1 ML VIAL IV SCH ×2 (05:37→17:50)
[2020-08-19 06:10] LABS: Calcium 8.9 MG/DL (8.5-10.1); Osmolality,Calculated 290.2 MOS/KG (273-304); Potassium 4.8 MMOL/L (3.5-5.1)
[2020-08-19] MEDS: BUDESONIDE 0.25 MG/2 ML NEB RESP TX SCH ×2 (07:41→19:45)
[2020-08-19] MEDS: GABAPENTIN 300 MG CAPSULE PO SCH ×2 (08:40→21:15)
[2020-08-19] MEDS: PANTOPRAZOLE 40 MG TABLET PO SCH (08:41)
[2020-08-19] MEDS: DILTIAZEM CD 180 MG CAPSULE PO SCH (08:41)
[2020-08-19] MEDS: THEOPHYLLINE ER (24 HR) 200 MG CAPSULE PO SCH (08:41)
[2020-08-19] MEDS: DOCUSATE SODIUM 100 MG CAPSULE PO SCH ×2 (08:41→21:15)
[2020-08-19] MEDS: ASPIRIN EC 81 MG TABLET PO SCH (08:41)
[2020-08-19] MEDS: APIXABAN 5 MG TABLET PO SCH ×2 (08:41→21:15)
[2020-08-19] MEDS: FUROSEMIDE 40 MG/4 ML VIAL IV SCH ×2 (08:42→16:41)
[2020-08-19] MEDS: INSULIN REGULAR 100 UNIT/ML SUBCUT SCH ×4 (08:42→21:18)
[2020-08-19] MEDS: METOPROLOL TARTRATE 25 MG TABLET PO SCH ×2 (08:43→21:15)
[2020-08-19] MEDS: BISACODYL 5 MG TABLET PO SCH ×2 (08:45→21:15)
[2020-08-19] MEDS: VANCOMYCIN INJ 2,000 MG in SODIUM CHLORIDE 0.9% 500 ML IV SCH (13:14)
[2020-08-19] MEDS: cefTRIAXone 1,000 MG in SYRINGE 1 EACH IV SCH (17:49)
[2020-08-19] MEDS: INSULIN GLARGINE 100 UNIT/ML SUBCUT SCH (21:18)
[2020-08-20] MEDS: ALBUTEROL/IPRATROPIUM 3 ML NEB RESP TX SCH ×6 (03:52→23:30)
[2020-08-20] MEDS: methylPREDNISolone SOD SUC 40 MG/1 ML VIAL IV SCH (05:43)
[2020-08-20] MEDS: LACTULOSE 20 GM/30 ML UDCUP PO PRN (05:44)
[2020-08-20] MEDS: BUDESONIDE 0.25 MG/2 ML NEB RESP TX SCH ×2 (07:05→19:20)
[2020-08-20] MEDS: FUROSEMIDE 40 MG/4 ML VIAL IV SCH ×2 (08:50→16:47)
[2020-08-20] MEDS: INSULIN REGULAR 100 UNIT/ML SUBCUT SCH ×4 (08:50→21:35)
[2020-08-20] MEDS: METOPROLOL TARTRATE 25 MG TABLET PO SCH ×2 (08:51→22:08)
[2020-08-20] MEDS: PANTOPRAZOLE 40 MG TABLET PO SCH (08:51)
[2020-08-20] MEDS: DILTIAZEM CD 180 MG CAPSULE PO SCH (08:51)
[2020-08-20] MEDS: BISACODYL 5 MG TABLET PO SCH ×2 (08:51→21:35)
[2020-08-20] MEDS: THEOPHYLLINE ER (24 HR) 200 MG CAPSULE PO SCH (08:51)
[2020-08-20] MEDS: ASPIRIN EC 81 MG TABLET PO SCH (08:51)
[2020-08-20] MEDS: DOCUSATE SODIUM 100 MG CAPSULE PO SCH ×2 (08:51→21:35)
[2020-08-20] MEDS: APIXABAN 5 MG TABLET PO SCH ×2 (08:51→21:35)
[2020-08-20] MEDS: GABAPENTIN 300 MG CAPSULE PO SCH ×2 (08:51→21:35)
[2020-08-20] MEDS: VANCOMYCIN INJ 2,000 MG in SODIUM CHLORIDE 0.9% 500 ML IV SCH (13:40)
[2020-08-20] MEDS: INSULIN GLARGINE 100 UNIT/ML SUBCUT SCH (21:34)
[2020-08-20] MEDS: SODIUM CHLORIDE 0.9% 1,000 ML IV SCH ×2 (22:07)
[2020-08-21] MEDS: ALBUTEROL/IPRATROPIUM 3 ML NEB RESP TX SCH ×5 (02:50→18:55)
[2020-08-21] MEDS: BUDESONIDE 0.25 MG/2 ML NEB RESP TX SCH ×2 (07:09→18:55)
[2020-08-21] MEDS: INSULIN REGULAR 100 UNIT/ML SUBCUT SCH ×4 (09:10→21:52)
[2020-08-21] MEDS: FUROSEMIDE 40 MG/4 ML VIAL IV SCH ×2 (09:11→17:16)
[2020-08-21] MEDS: APIXABAN 5 MG TABLET PO SCH ×2 (09:11→21:52)
[2020-08-21] MEDS: BISACODYL 5 MG TABLET PO SCH ×2 (09:11→21:52)
[2020-08-21] MEDS: DOCUSATE SODIUM 100 MG CAPSULE PO SCH ×2 (09:11→21:52)
[2020-08-21] MEDS: ASPIRIN EC 81 MG TABLET PO SCH (09:11)
[2020-08-21] MEDS: PANTOPRAZOLE 40 MG TABLET PO SCH (09:11)
[2020-08-21] MEDS: DILTIAZEM CD 180 MG CAPSULE PO SCH (09:11)
[2020-08-21] MEDS: METOPROLOL TARTRATE 25 MG TABLET PO SCH ×2 (09:11→21:57)
[2020-08-21] MEDS: GABAPENTIN 300 MG CAPSULE PO SCH ×2 (09:11→21:52)
[2020-08-21] MEDS: THEOPHYLLINE ER (24 HR) 200 MG CAPSULE PO SCH (09:12)
[2020-08-21] MEDS: traMADol 50 MG TABLET PO PRN (09:58)
[2020-08-21] MEDS: VANCOMYCIN INJ 2,000 MG in SODIUM CHLORIDE 0.9% 500 ML IV SCH (12:50)
[2020-08-21] MEDS ORDERED: TUBERCULIN SKIN TEST 0.1 ML SYRINGE INTRADERM ONE (13:39)
[2020-08-21] MEDS: ACETAMINOPHEN 325 MG TABLET PO PRN (17:50)
[2020-08-21] MEDS: INSULIN GLARGINE 100 UNIT/ML SUBCUT SCH (21:50)
[2020-08-22] MEDS: ALBUTEROL/IPRATROPIUM 3 ML NEB RESP TX SCH ×6 (00:39→19:38)
[2020-08-22] MEDS: SODIUM CHLORIDE 0.9% 1,000 ML IV SCH ×4 (03:48→21:29)
[2020-08-22 06:09] LABS: Basophils % 0.1 % (0.0-0.8); Eosinophils # 0.9 10*3/uL (0.0-0.87); Eosinophils % 10.4 % (0.00-10.9); Hematocrit 41.9 VOL% (35.7-47.0); Hemoglobin 12.5 GM/DL (12.0-16.0); Immature Granulocytes % 0.5 %; Immature Granulocytes Absolute 0.04 #; Lymphocytes # 0.9 10*3/uL (1.4-4.0); Lymphocytes % 10.8 % (21.3-54.2); Mean Corpuscular HGB Conc 29.8 GM/DL (32-36); Mean Corpuscular Volume 93.3 FL (87-102); Mean Platelet Volume 11.3 FL (9.6-12.0); Neutrophils % 67.2 % (38.7-73.9); Platelet Count 249 T/CUMM (130-400); Red Blood Count 4.49 MC/CUMM (3.8-5.5); White Blood Count 8.6 T/CUMM (4-12)
[2020-08-22 06:43] LABS: Hypochromasia 1+
[2020-08-22 06:44] LABS: Microcytosis 1+; Platelet Estimate Normal; Polychromasia Slight
[2020-08-22] MEDS: BUDESONIDE 0.25 MG/2 ML NEB RESP TX SCH ×2 (07:20→19:38)
[2020-08-22] MEDS: DOCUSATE SODIUM 100 MG CAPSULE PO SCH ×2 (09:03→22:55)
[2020-08-22] MEDS: METOPROLOL TARTRATE 25 MG TABLET PO SCH ×2 (09:03→22:55)
[2020-08-22] MEDS: DILTIAZEM CD 180 MG CAPSULE PO SCH (09:04)
[2020-08-22] MEDS: PANTOPRAZOLE 40 MG TABLET PO SCH (09:04)
[2020-08-22] MEDS: ASPIRIN EC 81 MG TABLET PO SCH (09:04)
[2020-08-22] MEDS: THEOPHYLLINE ER (24 HR) 200 MG CAPSULE PO SCH (09:04)
[2020-08-22] MEDS: GABAPENTIN 300 MG CAPSULE PO SCH ×2 (09:04→22:55)
[2020-08-22] MEDS: FUROSEMIDE 40 MG/4 ML VIAL IV SCH ×2 (09:08→16:30)
[2020-08-22] MEDS: INSULIN REGULAR 100 UNIT/ML SUBCUT SCH ×4 (10:31→23:13)
[2020-08-22] MEDS: BISACODYL 5 MG TABLET PO SCH ×2 (11:56→22:56)
[2020-08-22] MEDS: VANCOMYCIN INJ 2,000 MG in SODIUM CHLORIDE 0.9% 500 ML IV SCH (12:39)
[2020-08-22] MEDS: APIXABAN 5 MG TABLET PO SCH ×2 (12:39→22:55)
[2020-08-22] MEDS: ONDANSETRON 4 MG/2 ML VIAL IV PRN (17:19)
[2020-08-22] MEDS: ACETAMINOPHEN 325 MG TABLET PO PRN (18:19)
[2020-08-22] MEDS ORDERED: ONDANSETRON 4 MG/2 ML VIAL IV ONE (21:07)
[2020-08-22] MEDS: INSULIN GLARGINE 100 UNIT/ML SUBCUT SCH (22:55)
[2020-08-23] MEDS: ALBUTEROL/IPRATROPIUM 3 ML NEB RESP TX SCH ×6 (00:15→19:14)
[2020-08-23] MEDS: ONDANSETRON 4 MG/2 ML VIAL IV PRN (01:01)
[2020-08-23] MEDS: SODIUM CHLORIDE 0.9% 1,000 ML IV SCH (08:09)
[2020-08-23] MEDS: ASPIRIN EC 81 MG TABLET PO SCH (12:19)
[2020-08-23] MEDS: FUROSEMIDE 40 MG/4 ML VIAL IV SCH ×2 (12:19→17:52)
[2020-08-23] MEDS: DILTIAZEM CD 180 MG CAPSULE PO SCH (12:19)
[2020-08-23] MEDS: PANTOPRAZOLE 40 MG TABLET PO SCH (12:19)
[2020-08-23] MEDS: DOCUSATE SODIUM 100 MG CAPSULE PO SCH ×2 (12:20→22:20)
[2020-08-23] MEDS: THEOPHYLLINE ER (24 HR) 200 MG CAPSULE PO SCH (12:20)
[2020-08-23] MEDS: GABAPENTIN 300 MG CAPSULE PO SCH ×2 (12:20→22:20)
[2020-08-23] MEDS: APIXABAN 5 MG TABLET PO SCH ×2 (12:20→22:20)
[2020-08-23] MEDS: BISACODYL 5 MG TABLET PO SCH ×2 (12:20→22:20)
[2020-08-23] MEDS: METOPROLOL TARTRATE 25 MG TABLET PO SCH ×2 (12:20→22:20)
[2020-08-23] MEDS: INSULIN REGULAR 100 UNIT/ML SUBCUT SCH ×3 (12:21→17:52)
[2020-08-23] MEDS: VANCOMYCIN INJ 2,000 MG in SODIUM CHLORIDE 0.9% 500 ML IV SCH (12:28)
[2020-08-23] MEDS: DICLOFENAC 1% GEL 100 GM TUBE TOP SCH ×3 (12:29→18:02)
[2020-08-23] MEDS: BUDESONIDE 0.25 MG/2 ML NEB RESP TX SCH ×2 (18:23→19:14)
[2020-08-23] MEDS: INSULIN GLARGINE 100 UNIT/ML SUBCUT SCH (22:21)
[2020-08-24] MEDS: ALBUTEROL/IPRATROPIUM 3 ML NEB RESP TX SCH ×7 (00:09→23:50)
[2020-08-24] MEDS: DICLOFENAC 1% GEL 100 GM TUBE TOP SCH ×4 (02:59→18:13)
[2020-08-24] MEDS: SODIUM CHLORIDE 0.9% 1,000 ML IV SCH ×3 (04:02→17:41)
[2020-08-24] MEDS: INSULIN REGULAR 100 UNIT/ML SUBCUT SCH ×4 (04:02→18:13)
[2020-08-24] MEDS: BUDESONIDE 0.25 MG/2 ML NEB RESP TX SCH ×2 (07:01→19:09)
[2020-08-24] MEDS: FUROSEMIDE 40 MG/4 ML VIAL IV SCH ×2 (09:08→17:30)
[2020-08-24] MEDS: DILTIAZEM CD 180 MG CAPSULE PO SCH (09:08)
[2020-08-24] MEDS: ASPIRIN EC 81 MG TABLET PO SCH (09:08)
[2020-08-24] MEDS: BISACODYL 5 MG TABLET PO SCH ×2 (09:09→21:45)
[2020-08-24] MEDS: DOCUSATE SODIUM 100 MG CAPSULE PO SCH ×2 (09:09→21:44)
[2020-08-24] MEDS: APIXABAN 5 MG TABLET PO SCH ×2 (09:09→21:45)
[2020-08-24] MEDS: PANTOPRAZOLE 40 MG TABLET PO SCH (09:16)
[2020-08-24] MEDS: THEOPHYLLINE ER (24 HR) 200 MG CAPSULE PO SCH (09:16)
[2020-08-24] MEDS: METOPROLOL TARTRATE 25 MG TABLET PO SCH ×2 (09:16→21:44)
[2020-08-24] MEDS: GABAPENTIN 300 MG CAPSULE PO SCH ×2 (09:16→21:44)
[2020-08-24] MEDS: VANCOMYCIN INJ 2,000 MG in SODIUM CHLORIDE 0.9% 500 ML IV SCH (13:09)
[2020-08-24] MEDS: ONDANSETRON 4 MG/2 ML VIAL IV PRN (17:31)
[2020-08-24] MEDS: INSULIN GLARGINE 100 UNIT/ML SUBCUT SCH (21:45)
[2020-08-24] MEDS: ACETAMINOPHEN 325 MG TABLET PO PRN (21:47)
[2020-08-25] MEDS: INSULIN REGULAR 100 UNIT/ML SUBCUT SCH ×5 (02:44→22:26)
[2020-08-25] MEDS: ALBUTEROL/IPRATROPIUM 3 ML NEB RESP TX SCH ×5 (04:10→20:18)
[2020-08-25] MEDS: DICLOFENAC 1% GEL 100 GM TUBE TOP SCH ×5 (05:57→22:26)
[2020-08-25] MEDS: BUDESONIDE 0.25 MG/2 ML NEB RESP TX SCH (07:43)
[2020-08-25] MEDS: DOCUSATE SODIUM 100 MG CAPSULE PO SCH ×2 (09:03→22:25)
[2020-08-25] MEDS: ASPIRIN EC 81 MG TABLET PO SCH (09:03)
[2020-08-25] MEDS: THEOPHYLLINE ER (24 HR) 200 MG CAPSULE PO SCH (09:03)
[2020-08-25] MEDS: METOPROLOL TARTRATE 25 MG TABLET PO SCH ×2 (09:03→22:25)
[2020-08-25] MEDS: FUROSEMIDE 40 MG/4 ML VIAL IV SCH ×2 (09:03→16:18)
[2020-08-25] MEDS: DILTIAZEM CD 180 MG CAPSULE PO SCH (09:03)
[2020-08-25] MEDS: BISACODYL 5 MG TABLET PO SCH ×2 (09:03→22:25)
[2020-08-25] MEDS: GABAPENTIN 300 MG CAPSULE PO SCH ×2 (09:03→22:25)
[2020-08-25] MEDS: APIXABAN 5 MG TABLET PO SCH ×2 (09:03→22:25)
[2020-08-25] MEDS: PANTOPRAZOLE 40 MG TABLET PO SCH (09:03)
[2020-08-25] MEDS: ACETAMINOPHEN 325 MG TABLET PO PRN (13:30)
[2020-08-25] MEDS: INSULIN GLARGINE 100 UNIT/ML SUBCUT SCH (22:26)
[2020-08-26] MEDS: ALBUTEROL/IPRATROPIUM 3 ML NEB RESP TX SCH ×7 (01:20→23:45)
[2020-08-26 01:31] LABS: ABG Base Excess 7.9 MMOL/L (-2.5-2.5); ABG HCO3 31.6 MMOL/L (20-26); ABG Oxygen Saturation 93.5 % (95-100); ABG PH 7.262 (7.35-7.45); ABG PO2 75.1 MM HG (80-95); ABG TCO2 35.1 MMOL/L (23-27); Allen Test Positive
[2020-08-26 01:34] LABS: ABG PCO2 85.5 MM HG (35-48)
[2020-08-26] MEDS: SODIUM CHLORIDE 0.9% 1,000 ML IV SCH (04:57)
[2020-08-26] MEDS: DILTIAZEM CD 180 MG CAPSULE PO SCH (08:57)
[2020-08-26] MEDS: PANTOPRAZOLE 40 MG TABLET PO SCH (08:57)
[2020-08-26] MEDS: THEOPHYLLINE ER (24 HR) 200 MG CAPSULE PO SCH (08:58)
[2020-08-26] MEDS: BISACODYL 5 MG TABLET PO SCH ×2 (08:58→20:02)
[2020-08-26] MEDS: FUROSEMIDE 40 MG/4 ML VIAL IV SCH ×2 (08:59→17:41)
[2020-08-26] MEDS: DOCUSATE SODIUM 100 MG CAPSULE PO SCH ×2 (08:59→20:01)
[2020-08-26] MEDS: APIXABAN 5 MG TABLET PO SCH ×2 (08:59→20:02)
[2020-08-26] MEDS: ASPIRIN EC 81 MG TABLET PO SCH (08:59)
[2020-08-26] MEDS: GABAPENTIN 300 MG CAPSULE PO SCH ×2 (08:59→20:01)
[2020-08-26] MEDS: METOPROLOL TARTRATE 25 MG TABLET PO SCH ×2 (09:00→20:01)
[2020-08-26] MEDS: DICLOFENAC 1% GEL 100 GM TUBE TOP SCH ×4 (09:00→21:00)
[2020-08-26] MEDS: INSULIN REGULAR 100 UNIT/ML SUBCUT SCH ×4 (09:25→21:00)
[2020-08-26] MEDS ORDERED: DILTIAZEM 50 MG/10 ML VIAL IV ONE ×2 (10:11→12:00)
[2020-08-26] MEDS ORDERED: DILTIAZEM 25 MG/5 ML VIAL IV ONE (10:14)
[2020-08-26] MEDS: BUDESONIDE 0.25 MG/2 ML NEB RESP TX SCH ×2 (10:48→19:35)
[2020-08-26] MEDS ORDERED: dilTIAZem Drip 125 MG/125 ML PREMIX IV SCH (12:00)
[2020-08-26] MEDS: dilTIAZem INJ 125 MG in SODIUM CHLORIDE 0.9% 125 MG/100 ML BAG IV SCH ×2 (13:25→21:59)
[2020-08-26] MEDS ORDERED: METOPROLOL TARTRATE 25 MG TABLET PO ONE (14:33)
[2020-08-26 15:23] LABS: ABG HCO3 31.5 MMOL/L (20-26); ABG Oxygen Saturation 86.9 % (95-100); ABG PH 7.264 (7.35-7.45); ABG TCO2 35.2 MMOL/L (23-27)
[2020-08-26 15:26] LABS: Eosinophils # 0.1 10*3/uL (0.0-0.87); Eosinophils % 0.6 % (0.00-10.9); Hematocrit 42.8 VOL% (35.7-47.0); Hemoglobin 11.9 GM/DL (12.0-16.0); Immature Granulocytes Absolute 0.08 #; Lymphocytes # 0.4 10*3/uL (1.4-4.0); Lymphocytes % 4.6 % (21.3-54.2); Mean Corpuscular HGB Conc 27.8 GM/DL (32-36); Mean Corpuscular Volume 96.6 FL (87-102); Monocytes % 5.4 % (1.7-12.7); Neutrophils % 88.4 % (38.7-73.9); Platelet Count 235 T/CUMM (130-400); Red Blood Count 4.43 MC/CUMM (3.8-5.5); Red Cell Distribution Width 17.3 % (9.3-17.3); White Blood Count 8.3 T/CUMM (4-12)
[2020-08-26 15:30] LABS: ABG PCO2 85.7 MM HG (35-48)
[2020-08-26 15:45] LABS: Calcium 9.1 MG/DL (8.5-10.1); Osmolality,Calculated 273.1 MOS/KG (273-304); Potassium 5.2 MMOL/L (3.5-5.1)
[2020-08-26 16:12] LABS: Anisocytosis 1+; Hypochromasia 1+; Lymphocytes 5 % (20-55); Segmented Neutrophils 87 % (50-85); Total Cells Counted 100
[2020-08-26 16:13] LABS: Platelet Estimate Adequate; Polychromasia Slight
[2020-08-26] MEDS: INSULIN GLARGINE 100 UNIT/ML SUBCUT SCH (21:00)
[2020-08-26 21:32] VITALS: BP 98/73
[2020-08-27] MEDS: ALBUTEROL/IPRATROPIUM 3 ML NEB RESP TX SCH ×4 (03:40→21:22)
[2020-08-27 04:03] LABS: Basophils % 0.1 % (0.0-0.8); Eosinophils % 0.4 % (0.00-10.9); Hematocrit 39.5 VOL% (35.7-47.0); Immature Granulocytes % 0.9 %; Immature Granulocytes Absolute 0.07 #; Lymphocytes # 0.4 10*3/uL (1.4-4.0); Lymphocytes % 5.1 % (21.3-54.2); Mean Corpuscular HGB Conc 30.4 GM/DL (32-36); Mean Platelet Volume 11.1 FL (9.6-12.0); Monocytes % 6.1 % (1.7-12.7); Neutrophils % 87.4 % (38.7-73.9); Platelet Count 192 T/CUMM (130-400); Red Blood Count 4.34 MC/CUMM (3.8-5.5); Red Cell Distribution Width 17.2 % (9.3-17.3); White Blood Count 7.9 T/CUMM (4-12)
[2020-08-27 04:12] LABS: Platelet Estimate Adequate
[2020-08-27 04:13] LABS: Hypochromasia Slight
[2020-08-27 04:21] LABS: ABG HCO3 31.3 MMOL/L (20-26); ABG Oxygen Saturation 79.1 % (95-100); ABG PH 7.318 (7.35-7.45); ABG PO2 48.7 MM HG (80-95); ABG TCO2 33.4 MMOL/L (23-27)
[2020-08-27 04:31] LABS: Albumin 2.3 G/DL (3.4-5.0); Bilirubin,Total 0.9 MG/DL (0.2-1.0); Calcium 8.8 MG/DL (8.5-10.1); Calcium 9.3 MG/DL (8.5-10.1); Osmolality,Calculated 274.1 MOS/KG (273-304); Potassium 5.6 MMOL/L (3.5-5.1); Potassium 5.7 MMOL/L (3.5-5.1)
[2020-08-27 04:33] LABS: ABG PCO2 72.6 MM HG (35-48)
[2020-08-27] MEDS ORDERED: FUROSEMIDE 100 MG/10 ML VIAL IV ONE (07:18)
[2020-08-27] MEDS: INSULIN REGULAR 100 UNIT/ML SUBCUT SCH ×4 (07:20→20:24)
[2020-08-27] MEDS: DILTIAZEM CD 180 MG CAPSULE PO SCH (08:40)
[2020-08-27] MEDS: GABAPENTIN 300 MG CAPSULE PO SCH ×2 (08:41→20:24)
[2020-08-27] MEDS: DOCUSATE SODIUM 100 MG CAPSULE PO SCH ×2 (08:41→20:24)
[2020-08-27] MEDS: METOPROLOL TARTRATE 25 MG TABLET PO SCH ×2 (08:50→20:24)
[2020-08-27] MEDS: dilTIAZem INJ 125 MG in SODIUM CHLORIDE 0.9% 125 MG/100 ML BAG IV SCH ×2 (08:50→13:45)
[2020-08-27] MEDS: FUROSEMIDE 40 MG/4 ML VIAL IV SCH ×2 (08:50→16:00)
[2020-08-27] MEDS: PANTOPRAZOLE 40 MG TABLET PO SCH (08:52)
[2020-08-27] MEDS: ASPIRIN EC 81 MG TABLET PO SCH (08:52)
[2020-08-27] MEDS: THEOPHYLLINE ER (24 HR) 200 MG CAPSULE PO SCH (08:52)
[2020-08-27] MEDS: APIXABAN 5 MG TABLET PO SCH ×2 (08:52→20:24)
[2020-08-27] MEDS: BISACODYL 5 MG TABLET PO SCH ×2 (08:52→20:24)
[2020-08-27] MEDS: DICLOFENAC 1% GEL 100 GM TUBE TOP SCH ×4 (08:53→20:24)
[2020-08-27] MEDS ORDERED: SODIUM CHLORIDE 0.45% 250 ML IV ONE (08:58)
[2020-08-27] MEDS: BUDESONIDE 0.25 MG/2 ML NEB RESP TX SCH ×2 (09:45→21:22)
[2020-08-27] MEDS: SODIUM CHLORIDE 0.45% 1,000 ML IV SCH ×2 (10:27→20:53)
[2020-08-27] MEDS: INSULIN GLARGINE 100 UNIT/ML SUBCUT SCH (20:24)
[2020-08-28] MEDS ORDERED: MORPHINE 4 MG/1 ML VIAL IV PRN (01:59)
[2020-08-28] MEDS: dilTIAZem INJ 125 MG in SODIUM CHLORIDE 0.9% 125 MG/100 ML BAG IV SCH (02:00)
[2020-08-28] MEDS: MORPHINE 4 MG/1 ML VIAL IV PRN ×2 (02:38→03:50)
[2020-08-28] MEDS: LORazepam 2 MG/1 ML VIAL IV PRN ×2 (02:38→03:50)
== END 2020-08-28 04:45 | disposition expired | DRG 189 ==
LOC: EDBD → EDUNIT# → N.ED 13:32 → N.EDINP 15:28 → N.3E 16:38 → N.CC 08-26 04:48
PROVIDERS: ADMIT Family Medicine; ATTEND Family Medicine